=== PATIENT | male | born 1945 | race African-American/Black ===

== ENCOUNTER 2017-11-14 07:38 | Day surgery (SDC) | payer OTHER ==
[2017-11-11 11:24] VITALS: BMI 29.8
[2017-11-14] MEDS ORDERED: LIDOCAINE HCL/PF 2% SDV 5ML VIAL ONE (10:14)
[2017-11-14] MEDS ORDERED: PROPOFOL 20 ML ONE (10:15)
[2017-11-14] MEDS ORDERED: MIDAZOLAM HCL 2 MG/2 ML SINGLE DOSE VIAL ONE (10:17)
[2017-11-14] MEDS ORDERED: CLINDAMYCIN PHOSPHATE 600 MG/4 ML VIAL ONE (11:25)
[2017-11-14] MEDS ORDERED: BUPIVACAINE HCL/PF 0.25% (2.5MG/ML) 10 ML VIAL IJ ONE (11:37)
[2017-11-14] MEDS ORDERED: LIDOCAINE HCL 1%, 10 MG/ML (50 mL VIAL) IJ ONE (11:37)
[2017-11-14] MEDS ORDERED: KETOROLAC TROMETHAMINE 30 MG/1 ML VIAL ONE (11:41)
[2017-11-14] MEDS ORDERED: ONDANSETRON 4 MG/2 ML VIAL ONE (11:41)
[2017-11-14] MEDS ORDERED: DEXAMETHASONE SOD PHOSPHATE 4 MG/1 ML VIAL ONE (11:41)
[2017-11-14 12:28] VITALS: TEMP 98
[2017-11-14 13:15] VITALS: BP 122/72; PULSE 81
[2017-11-14] MEDS ORDERED: ONDANSETRON 4 MG/2 ML VIAL IVPUSH PRN (13:41)
[2017-11-14] MEDS ORDERED: oxyCODONE HCL 5 MG TABLET PO PRN (13:41)
[2017-11-14] MEDS ORDERED: LACTATED RINGERS SOLUTION 1,000 ML IV SCH (13:45)
--- NOTE | 2017-11-16 19:40 | OP ---
DATE OF OPERATION: 11/14/2017 LOCATION: [facility]. SURGEON: Jessica Mckeon MD SENIOR NETWORK ADMINISTRATOR: EDIN Francois PREOPERATIVE DIAGNOSIS: Right small finger mass. POSTOPERATIVE DIAGNOSIS: Right small finger mass. PROCEDURE: Excision of right small finger mass. FINDINGS: Thickened scar tissue, central portion of the mass, distal pulp, distal phalanx. PROCEDURE: Informed consent was obtained. Patient taken to the operating room, where the right upper extremity was prepped and draped in a sterile fashion. Finger block was performed under MAC anesthesia and a [place] drain was used for a tourniquet. Incision was made on the area of the mass, which was marked prior to the start of surgery. It was taken down and a central semisolid mass noted centrally. This was excised from the area around it and sent to Pathology for evaluation. Local tissue was also removed in the area and Bovie cautery was used to help maintain hemostasis. The wound was irrigated with copious amounts of irrigation and closed with 5-0 nylon in a single interrupted suture. JESSICA MCKEON M.D. [id number]
--- NOTE | 2017-11-20 15:00 | PATH ---
Surgical Pathology Report Patient Name: CLYDE TAYLOR [facility]. Rec. #: [id number] /Age/Gender: 1945 (Age: 72) / M Account: [id number] [facility] Taken: 11/14/2017 Received: 11/14/2017 Reported: 11/20/2017 Physicians: Willem Gomez M.D. Specimen(s) Received MASS RIGHT SMALL FINGER Clinical History Right small finger mass Final Diagnosis SMALL FINGER, RIGHT, MASS, EXCISION: DIGITAL DERMATOFIBROMA. (SEE NOTE) Note: Immunohistochemical studies, performed at [place], [place] ([id number]) demonstrate the lesional cells to be positive for factor X111a (diffuse) and SMA (patchy) with rare cells positive for desmin. CD34 and S100 are negative. This immunoprofile supports the diagnosis. Electronically Signed Ellen Andrews M.D. Gross Description Received in formalin labeled "mass right small finger," is a 0.9 x 0.6 x 0.2 cm portion of ledesma soft tissue. The specimen is submitted in toto in one cassette. 11/17/2017 saudi11/17/2017
== END 2017-11-14 13:30 | disposition home or self-care (01) ==
LOC: FASU 07:38 → EDBD 11:00 → FASU 13:30
PROVIDERS: ATTEND Orthopaedic Surgery
PROC: 0HBFXZX Excision of Right Hand Skin, External Approach, Diagnostic (ICD-10-PCS; principal; 2017-11-14 11:37)
DX: D23.61 Other benign neoplasm of skin of right upper limb, including shoulder (principal)
CPT/HCPCS: 88305-TC

== ENCOUNTER 2019-02-14 23:17 | Emergency (ER) | payer OTHER ==
[2019-02-14 23:56] VITALS: BP 134/77; PULSE 77; TEMP 98.6; BMI 28.7
[2019-02-15 00:20] LABS: BASO % 1.1 % (0-2.0); EOS % 3.9 % (0-4.5); HEMATOCRIT 34.5 % (35.4-49); HEMOGLOBIN 10.8 GM/dL (11.7-16.9); LYMPH % 37.7 % (8-40); MCH 21.4 pg (25.7-33.7); MCHC 31.3 g/dl (32.0-35.9); MEAN CELL VOLUME 68.2 fl (80-96); MEAN PLT VOLUME 7.4 fl (7.5-11.1); MONO % 10.6 % (3.8-10.2); NEUT % 46.7 % (42.8-82.8); PLATELET COUNT 233 K/MM3 (134-434); RBC 5.07 M/mm3 (4.00-5.60); RDW 17.3 % (11.9-15.9); WHITE BLOOD COUNT 5.6 K/mm3 (4.0-10.0)
[2019-02-15 00:33] LABS: INR 1.12 (0.83-1.09); PROTHROMBIN TIME (PATIENT) 13.2 SEC (9.7-13.0)
[2019-02-15 00:44] LABS: MAGNESIUM 2.2 mg/dL (1.8-2.4); N-TERMINAL BNP 106.9 pg/ml (5-125)
[2019-02-15 00:46] LABS: ALBUMIN 3.5 g/dl (3.4-5.0); ALK PHOS 133 U/L (45-117); ANION GAP 6 MMOL/L (8-16); BILIRUBIN,TOTAL 0.3 mg/dL (0.2-1); BLOOD UREA NITROGEN 13.3 mg/dL (7-18); CALCIUM 8.4 mg/dL (8.5-10.1); CHLORIDE 106 mmol/L (98-107); CO2 28 mmol/L (21-32); CREATININE 1.3 mg/dL (0.55-1.3); GLUCOSE,RANDOM 101 mg/dL (74-106); POTASSIUM 4.2 mmol/L (3.5-5.1); SGOT/AST 12 U/L (15-37); SGPT/ALT 14 U/L (13-61); SODIUM 140 mmol/L (136-145); TOT PROT 7.3 g/dl (6.4-8.2)
--- NOTE | 2019-02-15 00:55 | PDOC ---
History of Present Illness <Vijaya Mackenzie - Last Filed: 02/15/19 01:42> - General History Source: Patient Exam Limitations: No Limitations - History of Present Illness Initial Comments: 02/15/19 00:50 73M with a PMH of HTN, CHF, thalassemia who presents to the ER with complaints of CP. The patient states that he woke up on the morning of 02/13/19 and felt a bilateral lower chest dull/pressure. This pain eventually resolved throughout the day. He states that on 02/14/19 around 730pm, he felt the same pain. He tried to lay down so that the pain would go away but he continued to feel the pain as he turned on his couch. He denies any palpitations, lightheadedness, SOB , radiation, fever, chills, nausea, vomiting, recent illness. He denies ever having pain like this in the past. He states that he saw his campground attendant last week and that "everything was fine". He states that this pain is worse when he lays down and when he moves. He is unsure of any exertional component. <Leeroy Biswas - Last Filed: 02/15/19 02:00> - General Chief Complaint: Chest Pain Stated Complaint: CHEST PAIN Time Seen by Provider: 02/14/19 23:34 Past History <Vijaya Mackenzie - Last Filed: 02/15/19 01:42> - Past Medical History Anemia: No Asthma: No Cancer: Yes (PROSTATE 2001) Cardiac Disorders: No (? 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) HTN: Yes Hypercholesterolemia: No Liver Disease: No Seizures: No Thyroid Disease: No - Surgical History Abdominal Surgery: No Appendectomy: No Cardiac Surgery: No Cholecystectomy: No Lung Surgery: No Neurologic Surgery: No Orthopedic Surgery: No - Suicide/Smoking/Psychosocial Hx Smoking History: Never smoked Have you smoked in the past 12 months: No If you are a former smoker, when did you quit?: 35 YRS AGO Information on smoking cessation initiated: No Hx Alcohol Use: No Drug/Substance Use Hx: No Substance Use Type: None Hx Substance Use Treatment: No <Leeroy Biswas - Last Filed: 02/15/19 02:00> - Past Medical History Allergies/Adverse Reactions: Allergies Allergy/AdvReac Type Severity Reaction Status Date / Time Penicillins Allergy Severe Hives Verified 02/14/19 23:52 Home Medications: Ambulatory Orders Aspirin [Aspirin EC] 81 mg PO DAILY 11/11/17 Furosemide [Lasix] 40 mg PO DAILY 11/11/17 Isosorbide Mononitrate [Isosorbide Mononitrate ER] 30 mg PO DAILY 11/11/17 Losartan Potassium 25 mg PO DAILY 11/11/17 Ibuprofen [Motrin -] 600 mg PO TID #21 tablet 02/15/19 Review of Systems - Review of Systems Able to Perform ROS?: Yes Comments:: 02/15/19 00:54 GENERAL/CONSTITUTIONAL: No fever or chills. No weakness. HEAD, EYES, EARS, NOSE AND THROAT: No change in vision. No ear pain or discharge. No sore throat. CARDIOVASCULAR: + for CP. No palpitations, or lightheadedness. RESPIRATORY: No cough, wheezing, shortness of breath, or hemoptysis. GASTROINTESTINAL: No abdominal pain, nausea, vomiting, diarrhea, or constipation. GENITOURINARY: No dysuria, frequency, hematuria, or change in urination. MUSCULOSKELETAL: No joint or muscle swelling or pain. No neck or back pain. SKIN: No rash or lesions. NEUROLOGIC: No headache, numbness, tingling, focal weakness, loss of consciousness, or change in strength/sensation. Is the patient limited Ghanaian proficient: No <Leeroy Biswas - Last Filed: 02/15/19 02:00> *Physical Exam - Vital Signs Last Vital Signs Temp Pulse Resp BP Pulse Ox 98.6 F 77 18 134/77 98 02/14/19 23:17 02/14/19 23:17 02/14/19 23:17 02/14/19 23:17 02/14/19 23:17 <Vijaya Mackenzie - Last Filed: 02/15/19 01:42> - Vital Signs Last Vital Signs Temp Pulse Resp BP Pulse Ox 98.6 F 77 18 134/77 98 02/14/19 23:17 02/14/19 23:17 02/14/19 23:17 02/14/19 23:17 02/14/19 23:17 - Physical Exam Comments: 02/15/19 00:55 GENERAL: Well developed, well nourished. Awake and alert. No acute distress. HEENT: Normocephalic, atraumatic. Hearing grossly normal. Moist mucous membranes. PERRLA, EOMI. No conjunctival pallor. Sclera are non-icteric. NECK: Supple. Full ROM. No JVD. CARDIOVASCULAR: Regular rate and rhythm. No murmurs, rubs, or gallops. Distal pulses are 2+ and symmetric. PULMONARY: No evidence of respiratory distress. Lungs clear to auscultation bilaterally. No wheezing, rales or rhonchi. ABDOMINAL: Soft. Non-tender. Non-distended. No rebound or guarding. MUSCULOSKELETAL: TTP over anterior chest wall, especially in inferior parts of the wall. Normal range of motion at all joints. EXTREMITIES: No cyanosis. No clubbing. No edema. No calf tenderness or swelling. SKIN: Warm and dry. Normal capillary refill. No rashes. No jaundice. NEUROLOGICAL: Alert, awake, appropriate. Cranial nerves 2-12 grossly intact. Normal speech. Gait is normal without ataxia. PSYCHIATRIC: Cooperative. Good eye contact. Appropriate mood and affect. <Leeroy Biswas - Last Filed: 02/15/19 02:00> ED Treatment Course - LABORATORY CBC & Chemistry Diagram: 02/15/19 00:10 02/15/19 00:10 - ADDITIONAL ORDERS Additional order review: Laboratory Results 02/15/19 02/15/19 02/15/19 00:10 00:10 00:10 PT with INR 13.20 H INR 1.12 H Sodium 140 Potassium 4.2 Chloride 106 Carbon Dioxide 28 Anion Gap 6 L BUN 13.3 Creatinine 1.3 Est GFR (CKD-EPI)AfAm 62.30 Est GFR (CKD-EPI)NonAf 53.75 Random Glucose 101 Calcium 8.4 L Magnesium 2.2 Total Bilirubin 0.3 AST 12 L ALT 14 Alkaline Phosphatase 133 H Creatine Kinase 87 Troponin I < 0.02 B-Natriuretic Peptide 106.9 Total Protein 7.3 Albumin 3.5 02/15/19 00:10 RBC 5.07 MCV 68.2 L MCHC 31.3 L RDW 17.3 H MPV 7.4 L Neutrophils % 46.7 Lymphocytes % 37.7 Monocytes % 10.6 H Eosinophils % 3.9 Basophils % 1.1 - Medications Given in the ED: ED Medications Discontinued Medications Generic Name Dose Route Start Last Admin Trade Name Parveen PRN Reason Stop Dose Admin Famotidine/Sodium Chloride 20 mg in 50 mls @ 100 mls/hr 02/15/19 00:58 01:24 Pepcid 20 Mg Premixed Ivpb - IVPB 02/15/19 01:27 100 mls/hr ONCE ONE Administration Ketorolac Tromethamine 15 mg 02/15/19 00:58 02/15/19 01:10 Toradol Injection - IVPUSH 02/15/19 00:59 15 mg ONCE ONE Administration Sodium Chloride 500 ml 02/15/19 00:58 02/15/19 01:10 Normal Saline - IV 02/15/19 00:59 500 ml ONCE ONE Administration <Vijaya Mackenzie - Last Filed: 02/15/19 01:42> - LABORATORY CBC & Chemistry Diagram: 02/15/19 00:10 02/15/19 00:10 - ADDITIONAL ORDERS Additional order review: Laboratory Results 02/15/19 02/15/19 02/15/19 00:10 00:10 00:10 PT with INR 13.20 H INR 1.12 H Sodium 140 Potassium 4.2 Chloride 106 Carbon Dioxide 28 Anion Gap 6 L BUN 13.3 Creatinine 1.3 Est GFR (CKD-EPI)AfAm 62.30 Est GFR (CKD-EPI)NonAf 53.75 Random Glucose 101 Calcium 8.4 L Magnesium 2.2 Total Bilirubin 0.3 AST 12 L ALT 14 Alkaline Phosphatase 133 H Creatine Kinase 87 Troponin I < 0.02 B-Natriuretic Peptide 106.9 Total Protein 7.3 Albumin 3.5 02/15/19 00:10 RBC 5.07 MCV 68.2 L MCHC 31.3 L RDW 17.3 H MPV 7.4 L Neutrophils % 46.7 Lymphocytes % 37.7 Monocytes % 10.6 H Eosinophils % 3.9 Basophils % 1.1 - RADIOLOGY Radiology Studies Ordered: Category Date Time Status CHEST X-RAY PORTABLE* [RAD] Stat Radiology 02/14/19 23:53 Taken <Leeroy Biswas - Last Filed: 02/15/19 02:00> Medical Decision Making - Medical Decision Making 02/15/19 00:56 73M with a PMH of HTN, CHF, and thalassemia (unspecified) who presents to the ER with chest pain that is worse with movements and laying down. Pain is reproducible on palpation which makes ACS, PE, AAA less likely. Pt has documentation of an US showing no AAA done on 01/11/19 and a Hgb of 11.5 at that time. Pt is known anemic. CBC, CMP, trop, BNP negative. EKG unremarkable. CXR negative. Will give 500cc NS, pepcid, and toradol and reassess. 02/15/19 01:59 Pt states his symptoms have resolved. He has a PCP appointment today. I have instructed him to keep appointment and he agrees. Stable for PCP f/u and d/c. <Leeroy Biswas - Last Filed: 02/15/19 02:00> *DC/Admit/Observation/Transfer - Discharge Dispostion Decision to Admit order: No <Vijaya Mackenzie - Last Filed: 02/15/19 01:42> - Discharge Dispostion Decision to Admit order: No <Leeroy Biswas - Last Filed: 02/15/19 02:00> Diagnosis at time of Disposition: Costochondritis - Discharge Dispostion Disposition: HOME Condition at time of disposition: Fair - Prescriptions Prescriptions: Ibuprofen [Motrin -] 600 mg PO TID #21 tablet - Referrals Referrals: Milad Kirk MD [Primary Care Provider] - - Patient Instructions Printed Discharge Instructions: DI for Costochondritis Additional Instructions: Your ER visit is not complete until your follow up with your primary care physician. Please follow up with your primary care physician in 1-2 days. Please return to the ER if you have any signs or symptoms of chest pain, shortness of breath, uncontrollable fever, chills, nausea, vomiting, numbness, tingling, or weakness in any part of your body, changes in vision, or slurred speech. Please take your medications as prescribed. Please return to the ER if symptoms persist, worsen, or new symptoms arise. - Post Discharge Activity
[2019-02-15 00:58] LABS: ANISOCYTOSIS 2+; PLATELET ESTIMATE ADEQUATE
[2019-02-15] MEDS ORDERED: FAMOTIDINE 20 MG/50 ML IVPB 20 MG/50 ML MG IVPB ONE ×2 (00:58→01:20)
[2019-02-15] MEDS ORDERED: KETOROLAC TROMETHAMINE 30 MG/1 ML VIAL IVPUSH ONE (00:58)
[2019-02-15] MEDS ORDERED: SODIUM CHLORIDE 0.9% 1000 ML INFUS.BAG IV ONE (00:58)
[2019-02-15] MEDS ORDERED: KETOROLAC TROMETHAMINE 30 MG/1 ML VIAL ONE (01:03)
--- NOTE | 2019-02-15 02:14 | PDOC ---
Documentation entered by Jackelyn Singleton SCRIBE, acting as scribe for Vijaya Mackenzie MD. Vijaya Mackenzie MD: This documentation has been prepared by the Mani mann Aiswarya, SCRIBE, under my direction and personally reviewed by me in its entirety. I confirm that the documentation accurately reflects all work, treatment, procedures, and medical decision making performed by me. Attending Attestation - Resident Resident Name: Leeroy Biswas - ED Attending Attestation I have performed the following: I have examined & evaluated the patient, The case was reviewed & discussed with the resident, I agree w/resident's findings & plan - HPI HPI: 02/15/19 01:29 The patient is a 73 year old male, with a significant PMH of thalassemia, CHF, and HTN who presents to the emergency department with chest pain that began yesterday . The patient states he feels the dull intermittent pressure like pain located to the bilateral lower chest that progressively worsened it. Patient reports pain is exacerbated when lying down and on movement. The patient also mention he went to his pathology secretary and reports a normal cardiac stress test. The patient denies neurological deficit headache and dizziness. Denies fever, chills, nausea, vomit, diarrhea and constipation. Denies any other pain. Allergies: NKDA Past surgical history: None reported Social history: No reported PCP: None reported - Physicial Exam PE: 02/15/19 01:43 GENERAL: Awake, alert, and fully oriented, in no acute distress NECK: Normal ROM, supple, no lymphadenopathy, JVD, or masses LUNGS: Breath sounds equal, clear to auscultation bilaterally. No wheezes, and no crackles HEART: Regular rate and rhythm, normal S1 and S2, no murmurs, rubs or gallops ABDOMEN: Soft, nontender, normoactive bowel sounds. No guarding, no rebound. No masses EXTREMITIES: Normal range of motion, no edema. No clubbing or cyanosis. No cords, erythema, or tenderness NEUROLOGICAL: Cranial nerves II through XII grossly intact. Normal speech, normal gait SKIN: Warm, Dry, normal turgor, no rashes or lesions noted. - Medical Decision Making 02/15/19 02:54 Pt comes with atypical musculoskeletal CP that occurs when he twists or moves. He feels worse pain when he lies down, so he stays seated. Pt says that last weel he was seen by his cardiologits and had a normal nuclear stress test. Pt feels better with NSAIDS in the ER.
--- NOTE | 2019-02-15 15:15 | EKG ---
Test Reason : Blood Pressure : / mmHG Vent. Rate : 083 BPM Atrial Rate : 083 BPM P-R Int : 220 ms QRS Dur : 096 ms QT Int : 400 ms P-R-T Axes : 071 048 067 degrees QTc Int : 470 ms SINUS RHYTHM WITH 1ST DEGREE A-V BLOCK POSSIBLE LEFT ATRIAL ENLARGEMENT BORDERLINE ECG NO PREVIOUS ECGS AVAILABLE Confirmed by MARGARITA KNIGHT MD ([id number]) on 02/15/2019 3:15:31 PM Referred By: Confirmed By:MARGARITA KNIGHT MD
== END 2019-02-15 02:23 | disposition home or self-care (01) ==
LOC: JER 23:17
PROC: 3E033GC Introduction of Other Therapeutic Substance into Peripheral Vein, Percutaneous Approach (ICD-10-PCS; principal; 2019-02-14)
PROC: 3E0333Z Introduction of Anti-inflammatory into Peripheral Vein, Percutaneous Approach (ICD-10-PCS; 2019-02-14)
PROC: 3E0337Z Introduction of Electrolytic and Water Balance Substance into Peripheral Vein, Percutaneous Approach (ICD-10-PCS; 2019-02-14)
DX: M94.0 Chondrocostal junction syndrome [Tietze] (principal); I11.0 Hypertensive heart disease with heart failure; I50.9 Heart failure, unspecified; D56.9 Thalassemia, unspecified
CPT/HCPCS: 36415; 71045-TC-FY; 80053; 82550; 83735; 83880; 84484; 85025; 85610; 93005; 93010; 96365; 96375; 99283-25; J7030